=== PATIENT | male | born 1980 | race Hispanic/Latino ===

== ENCOUNTER 2020-03-12 12:47 | Emergency (ER) | payer BC, OTHER ==
[2020-03-12] MEDS ORDERED: TETRACAINE HCL 0.5% 4 ML OPHTH SOLN ONE ×2 (13:10→13:16)
[2020-03-12] MEDS ORDERED: FLUORESCEIN SODIUM 1 STRIP STRIP ONE ×2 (13:10→13:16)
[2020-03-12] MEDS ORDERED: HYDROCODONE/ACETAMINOPHEN 5/325 MG TAB ONE (14:04)
== END 2020-03-12 14:40 | disposition home or self-care (01) ==
LOC: EDH 12:47
DX: S05.01XA Injury of conjunctiva and corneal abrasion without foreign body, right eye, initial encounter (principal); H20.9 Unspecified iridocyclitis; W20.8XXA Other cause of strike by thrown, projected or falling object, initial encounter; Y93.89 Activity, other specified; Y92.89 Other specified places as the place of occurrence of the external cause; Y99.8 Other external cause status